=== PATIENT | male | born 1990 | race American Indian/Alaskan Native ===

== ENCOUNTER 2017-10-25 04:30 | Emergency (ER) | payer BC, OTHER ==
[2017-10-25 06:17] VITALS: BP 134/86
[2017-10-25] MEDS ORDERED: MOTRIN PO ONE (06:19)
--- NOTE | 2017-10-25 06:53 | Cat Scan Report ---
FINAL REPORT EXAM: CT HEAD WO CONTRAST HISTORY: HEADACHE TECHNIQUE: CT imaging acquired through the head without intravenous contrast. Transaxial reformations are provided. PRIORS: None. FINDINGS: The ventricles, cisterns and sulci are normal. No intraparenchymal or extra-axial mass, hemorrhage, or mass effect. Stacy and white-matter differentiation is normal. Normal spherical shape of the globes. Paranasal sinuses and mastoid air cells are clear. No skull or facial fracture visualized. IMPRESSION: No acute intracranial abnormality.
--- NOTE | 2017-10-25 07:13 | XRay Report ---
FINAL REPORT EXAM: XRAY C-SPINE LIMITED HISTORY: Neck pain COMPARISONS: None FINDINGS: Four views of the cervical spine Cervical lordosis is within normal limits. Vertebral body heights and intervertebral disc spaces are preserved. No fractures. Prevertebral soft tissues are within normal limits. Incomplete evaluation of the lung apices is unremarkable. IMPRESSION: Unremarkable cervical spine radiographs.
--- NOTE | 2017-10-25 07:20 | XRay Report ---
FINAL REPORT EXAM: XRAY SHOULDER COMPLETE LEFT HISTORY: Left shoulder pain COMPARISONS: None. FINDINGS: Three views left shoulder Left glenohumeral joint appears intact. Acromioclavicular and coracoclavicular intervals are within normal limits. No displaced fracture. Incomplete evaluation of the adjacent left lung is unremarkable. IMPRESSION: Unremarkable left shoulder radiographs.
--- NOTE | 2017-10-25 07:20 | XRay Report ---
FINAL REPORT EXAM: XRAY LUMBAR LIMITED HISTORY: lower back pain TECHNIQUE: AP and lateral views lumbar spine PRIORS: None. FINDINGS: Lumbar lordosis is intact. Leftward convexity of the lumbar spine is centered around L2-L3. Vertebral body heights and intervertebral disc spaces are preserved. No listhesis, spondylolysis or other fracture. IMPRESSION: No acute lumbar spine findings. Consider additional imaging for worsening/persistent symptoms. Chronic leftward convexity of the lumbar spine.
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
== END 2017-10-25 08:59 | disposition home or self-care (01) ==
LOC: ED 04:30
DX: S00.93XA Contusion of unspecified part of head, initial encounter (principal); S13.4XXA Sprain of ligaments of cervical spine, initial encounter; S39.012A Strain of muscle, fascia and tendon of lower back, initial encounter; F17.200 Nicotine dependence, unspecified, uncomplicated; F12.10 Cannabis abuse, uncomplicated; V89.2XXA Person injured in unspecified motor-vehicle accident, traffic, initial encounter; Y93.89 Activity, other specified; Y92.89 Other specified places as the place of occurrence of the external cause; Y99.8 Other external cause status
CPT/HCPCS: 70450; 72040; 72100; 99284